=== PATIENT | female | born 1995 | race Hispanic/Latino ===

== ENCOUNTER 2019-06-05 04:15 | Inpatient (IN) | payer OTHER ==
[2019-06-05] MEDS ORDERED: Ringers Lactate 1,000 ML IV PRN (06:19)
[2019-06-05] MEDS ORDERED: PROMETHAZINE 25 MG/ML VIAL IV PRN (06:19)
[2019-06-05] MEDS ORDERED: BUTORPHANOL 1 MG/ML INJ IV PRN (06:19)
[2019-06-05] MEDS ORDERED: Ringers Lactate 1,000 ML IV SCH (07:00)
[2019-06-05 07:18] LABS: RPR Titer ND
[2019-06-05 07:25] LABS: Absolute Lymphocytes (CBC) 1.3 K/uL (0.7-4.9); Basophils % 0.4 % (0-1.3); Eosinophils % 0.3 % (0-4.4); Hematocrit 36.2 % (36.0-45.0); Lymphocytes % 9.4 % (15.3-44.8); MPV 9.3 fL (7.6-11.3); Monocytes % 3.8 % (3.3-12.3); RBC Red Blood Cell Count 4.36 M/uL (3.86-4.86)
[2019-06-05 07:36] LABS: Urine Appearance CLOUDY; Urine Bilirubin NEGATIVE (NEG); Urine Blood 3+ (NEG); Urine Color YELLOW; Urine Glucose NEGATIVE (NEG); Urine Protein NEGATIVE (NEG); Urine Specific Gravity 1.015 (1.005-1.030)
[2019-06-05 07:46] LABS: Urine Microscopic Reflex ORDER UMIC
[2019-06-05 07:50] VITALS: BMI 32.4
[2019-06-05 07:54] LABS: Urine Bacteria 20-50 /HPF (<20)
[2019-06-05 07:55] LABS: Urine Amorphous Sediment 2+ /HPF (NONE SEEN); Urine Culture Reflex Order REFLEXED
[2019-06-05 07:57] LABS: Blood Morphology Comment NOT SEEN (NOT SEEN); Platelet Estimate ADEQ; Urine White Blood Cell Casts OK
[2019-06-05] MEDS ORDERED: ROPIVACAINE HCL 100 ML IV PRN (09:31)
--- NOTE | 2019-06-05 09:33 | P.OBGYNHP ---
Certification for Inpatient Patient admitted to: Inpatient With expected LOS: >2 Midnights Patient will require the following post-hospital care: None Practitioner: I am a practitioner with admitting privileges, knowledge of patient current condition, hospital course, and medical plan of care. Services: Services provided to patient in accordance with Admission requirements found in Title 42 Section 412.3 of the Code of Federal Regulations Patient History Date of Service: 06/05/19 Reason for admission: LABOR History of Present Illness: 23-year-old 1 para 0 who presents at 39 weeks and log 5 days gestation in active labor. Patient 1st presented was found to be 1 cm dilated she is now 3-4 cm dilated and dave regularly. Patient has obtained complete care and has been compliant with all visits. care was uncomplicated. If last office visit was on May 31 at which time she was 1 cm dilated. Patient is GBS negative. She had noninvasive testing done which was low risk female fetus. Aneuploidy screening was negative. Last ultrasound was on April 30, 2019 at which time the growth was appropriate cephalic presentation, anterior placenta. See record for further details. Allergies No Known Allergies Allergy (Unverified 06/05/19 06:18) Home Medications: Cmb#95/Iron/FA/Dha [ + Dha Combo Pack] 1 each PO DAILY - Past Medical/Surgical History Has patient received pneumonia vaccine in the past: Yes Diabetic: No Past Medical History: Patient denies medical history Past Surgical History: Patient denies surgical history - Family History Family History: Reviewed- Non-Contributory (Diabetes, HTN, Gi Reflux disease, High Cholesterol, Arthritis) - Social History Smoking Status: Never smoker Alcohol use: No CD- Drugs: No Place of Residence: Home Review of Systems 10-point ROS is otherwise unremarkable Physical Examination - Vital Signs Temperature: 97.8 F Blood Pressure: 126/86 Pulse: 90 Respirations: 18 - General General: Alert, Oriented x3, Moderate distress HEENT: Atraumatic Neck: Supple Respiratory: Normal air movement Cardiovascular: No edema, Normal pulses Gastrointestinal: No rebound, No guarding, Other (Gravid) Musculoskeletal: No clubbing, No swelling Integumentary: No rashes, No breakdown Neurological: Normal gait, Normal speech - Female Pelvic External genitalia: Normal Vagina: Normal Cervix: Dilation (4-5 cm), Effacement (70%), station (-2 ) Uterus: Gravid Adnexa: Unable to evaluate - Obstetrics heart rate tracing: Category 2 Amniotic membrane: SROM (at 730am) Laboratory Data (last 24 hrs) 06/05/19 06:48: WBC 13.6 H, Hgb 12.0, Hct 36.2, Plt Count 306 Assessment and Plan - Plan Patient is a 23-year-old 1 para 0 at 39 weeks and 5 days gestation who presents in active labor. Spontaneous rupture of membranes has occurred. scalp electrode was placed. Continuous maternal monitoring will be performed. GBS is negative. Patient desires epidural placement anesthesia has been notified. Routine intrapartum care will be provided. Discharge Plan: Home Plan to discharge in: 48 Hours - Advance Directives Does patient have a Living Will: No Does patient have a Durable POA for Healthcare: No
[2019-06-05] MEDS ORDERED: FENTANYL CITR 100 MCG/2 ML IV ONE (09:36)
[2019-06-05] MEDS ORDERED: ROPIVACAINE HCL 0.2% 20ML AMP IV SCH (10:00)
[2019-06-05] MEDS ORDERED: EPHEDRINE SULF 50 MG/ML VIAL ONE (10:22)
[2019-06-05] MEDS ORDERED: METHYLERGONOVINE 0.2MG/ML AMP IM ONE (12:34)
[2019-06-05] MEDS ORDERED: LIDOCAINE 1% MPF 30 ML VIAL ONE (12:59)
[2019-06-05] MEDS ORDERED: ONDANSETRON 4 MG (ODT) TAB PO PRN (13:09)
[2019-06-05] MEDS ORDERED: ACETAMINOPHEN 500 MG TAB PO PRN (13:09)
[2019-06-05] MEDS ORDERED: Oxycodone HCl/Acetaminophen 1 TAB TAB PO PRN (13:09)
[2019-06-05] MEDS ORDERED: METHYLERGONOVINE 0.2 MG TAB PO PRN (13:09)
[2019-06-05] MEDS ORDERED: BISACODYL 10 MG RECTAL SUPP RECT PRN (13:09)
[2019-06-05] MEDS ORDERED: DOCUSATE NA/SENNA CONC 1 TAB PO PRN (13:09)
[2019-06-05] MEDS ORDERED: IBUPROFEN 200 MG TAB PO PRN (13:09)
[2019-06-05 13:45] LABS: Absolute Lymphocytes (CBC) 0.5 K/uL (0.7-4.9); Basophils % 0.1 % (0-1.3); Hematocrit 27.1 % (36.0-45.0); Lymphocytes % 3.9 % (15.3-44.8); MPV 9.1 fL (7.6-11.3); Monocytes % 4.8 % (3.3-12.3); RBC Red Blood Cell Count 3.18 M/uL (3.86-4.86)
[2019-06-05 14:17] LABS: Blood Morphology Comment NOT SEEN (NOT SEEN); Platelet Estimate ADEQ; Urine White Blood Cell Casts OK
[2019-06-05] MEDS ORDERED: Ringers Lactate 1,000 ML IV ONE ×2 (16:14→23:33)
[2019-06-05] MEDS ORDERED: NA CHLORIDE 0.9% 250 ML IV SCH (18:00)
[2019-06-05] MEDS ORDERED: NA CHLORIDE 0.9% 500 ML ONE (20:18)
[2019-06-05] MEDS ORDERED: CARBOPROST TROME 250 MCG/ML IM ONE (21:32)
[2019-06-06 04:03] LABS: RPR (Rapid Plasma Reagin) NON-REACT (NON-REACT)
[2019-06-06 04:11] LABS: Basophils % 0.1 % (0-1.3); Hematocrit 27.4 % (36.0-45.0); MPV 8.8 fL (7.6-11.3); Monocytes % 8.6 % (3.3-12.3); RBC Red Blood Cell Count 3.29 M/uL (3.86-4.86)
[2019-06-06 05:18] LABS: Blood Morphology Comment NOT SEEN (NOT SEEN); Platelet Estimate ADEQ
[2019-06-06 14:38] VITALS: BP 122/69; TEMP 96.9
--- NOTE | 2019-06-06 15:44 | P.OP ---
Date of Service: 06/05/19 Findings and Operative Technique Patient delivered a viable female in cephalic presentation on June 05, 2019 at 12:37 p.m.. was delivered over a midline episiotomy via vacuum assisted vaginal delivery. Once was delivered the nose and mouth were suctioned with a suction bulb and the cord was clamped and cut. was placed on mother's abdomen for skin to skin bonding. Attention was then turned to the placenta. Cord blood was obtained. The placenta was then delivered with gentle traction at 12:41. Attention was then turned to the episiotomy. Episiotomy was noted to be a second-degree laceration however there was also a vaginal sidewall laceration present as well as a periurethral laceration. Extensive amount of bleeding was noted at the periurethral laceration as well as the vaginal sidewall laceration on the right. These areas were rapidly repaired with a 2 0 and 3 O Vicryl. Once bleeding was controlled on these areas attention was then turned to the midline episiotomy which was repaired with a 2 0 Vicryl in usual fashion. Significant amount of bleeding was noted. Estimated blood loss was about 500 cc patient was noted to be tachycardic and appeared to be pale. Decision was made to monitor patient for an hr and a stat CBC was ordered. 1st stage of labor was 7 hr. 2nd stage was 1 hr. Apgars were 8 and 9. Weight was found to be 5 lb 15 oz. Patient is feeling well however she does feel tired. Once hematocrit results were received decision was then made to transfuse the patient with 2 units of packed RBCs. These were ordered from the labs will be given to the patient once they are received. Patient will be monitored for any reactions. Patient is bonding well with the baby.
--- NOTE | 2019-06-06 15:47 | P.DS ---
Admission Date: 06/05/19 Discharge Date: 06/06/19 Discharge Condition: GOOD Reason for Admission: LABOR Brief History of Present Illness: 23-year-old 1 para 0 who presents at 39 weeks and log 5 days gestation in active labor. Patient 1st presented was found to be 1 cm dilated she is now 3-4 cm dilated and dave regularly. Patient has obtained complete care and has been compliant with all visits. care was uncomplicated. If last office visit was on May 31 at which time she was 1 cm dilated. Patient is GBS negative. She had noninvasive testing done which was low risk female fetus. Aneuploidy screening was negative. Last ultrasound was on April 30, 2019 at which time the growth was appropriate cephalic presentation, anterior placenta. See record for further details. Hospital Course: Patient did well following delivery. She states in town of hemorrhage and was transfused 2 units of PRBCs. Following this patient has been feeling much better and has been ambulating without difficulty. She is tolerating a regular diet and voiding well. Patient is no longer bleeding. She is bonding well with the baby. Her mother does express that there are some social concerns due to some issues with the father of the baby and his relation with the mother of the baby. Discuss with patient mother to please contact social work to help resolve these issues. Vital Signs/Physical Exam: Temp Pulse Resp BP Pulse Ox 96.9 F 105 H 16 122/69 98 06/06/19 12:00 06/06/19 12:00 06/06/19 12:00 06/06/19 12:00 06/06/19 12:00 General: Alert, In no apparent distress HEENT: Atraumatic Neck: Supple Respiratory: Normal air movement Cardiovascular: No edema, Normal pulses Gastrointestinal: Soft and benign (Fundus firm palpable beneath umbilicus) Musculoskeletal: No clubbing, No swelling Integumentary: No rashes, No breakdown Neurological: Normal gait, Normal speech Laboratory Data at Discharge: WBC 17.5 K/uL (4.3-10.9) H D 06/06/19 03:45 Hgb 9.1 g/dL (12.0-15.0) L 06/06/19 03:45 Hct 27.4 % (36.0-45.0) L 06/06/19 03:45 Plt Count 231 K/uL (152-406) 06/06/19 03:45 Home Medications: Cmb#95/Iron/FA/Dha [ + Dha Combo Pack] 1 each PO DAILY Diet: Regular Activity: No lifting more than 10 lbs Followup: Dereje Solitario DO [ACTIVE - CAN ADMIT] - (Follow up care with Dr. Solitario in 6 weeks for post visit.)
[2019-06-07 13:54] LABS: HBsAG Nonreactive (Nonreactive)
== END 2019-06-06 15:25 | disposition home health service (06) | DRG 806 ==
LOC: L&D 04:15 → 2ND-WCNRSY 06:41 → 2ND-WC 06:59
PROVIDERS: ADMIT Student in an Organized Health Care Education/Training Program; ATTEND Student in an Organized Health Care Education/Training Program
PROC: 10D07Z6 Extraction of Products of Conception, Vacuum, Via Natural or Artificial Opening (ICD-10-PCS; principal; 2019-06-05)
PROC: 0KQM0ZZ Repair Perineum Muscle, Open Approach (ICD-10-PCS; 2019-06-05)
PROC: 0W8NXZZ Division of Female Perineum, External Approach (ICD-10-PCS; 2019-06-05)
PROC: 0UQMXZZ Repair Vulva, External Approach (ICD-10-PCS; 2019-06-05)
PROC: 30233N1 Transfusion of Nonautologous Red Blood Cells into Peripheral Vein, Percutaneous Approach (ICD-10-PCS; 2019-06-05)
DX: O71.82 Other specified trauma to perineum and vulva (principal); O72.1 Other immediate postpartum hemorrhage; Z37.0 Single live birth; O70.1 Second degree perineal laceration during delivery; Z3A.39 39 weeks gestation of pregnancy
CPT/HCPCS: 36415; 36430; 81003; 81015; 85025; 86592; 86850; 86900; 86901; 87086; 87088; 87340; J2210; J2795; J3010; P9016

== ENCOUNTER 2021-09-06 04:13 | Inpatient (IN) | payer OTHER ==
[2021-09-06] MEDS ORDERED: PROMETHAZINE INJ 25 MG/ML AMP IM PRN (04:14)
[2021-09-06] MEDS ORDERED: Ringers Lactate 1,000 ML IV PRN (04:14)
[2021-09-06] MEDS ORDERED: METHYLERGONOVINE 0.2MG/ML AMP IM PRN (04:14)
[2021-09-06] MEDS ORDERED: CARBOPROST TROME 250 MCG/ML IM PRN (04:14)
[2021-09-06] MEDS ORDERED: BUTORPHANOL 1 MG/ML INJ IV PRN (04:14)
[2021-09-06] MEDS ORDERED: Ringers Lactate 1,000 ML IV SCH (05:00)
[2021-09-06] MEDS ORDERED: OXYTOCIN/LR 20 UNIT/1,000 ML BAG IV SCH ×2 (05:00→12:00)
[2021-09-06 05:17] LABS: Absolute Lymphocytes (CBC) 1.6 K/uL (0.7-4.9); Basophils % 0.7 % (0-1.3); Hematocrit 32.2 % (36.0-45.0); Lymphocytes % 20.6 % (15.3-44.8); RBC Red Blood Cell Count 4.09 M/uL (3.86-4.86)
[2021-09-06 05:24] VITALS: BMI 34.0
--- NOTE | 2021-09-06 08:00 | PREOPHP ---
Date of Admission: 09/06/2021 History Of Present Illness: This is a 25-year-old, 2, para 1, at 39 weeks 1 day for inductio n. The patient is dave regularly at this point. She is now 2.5 cm. She experienced partial rupture of membranes. Complete rupture membranes performed. Clear fluid. Full labor talk given. S he tried to go natural with the first delivery and had epidural at 7 cm. She said this time she will also again try to go natural if possible. Full labor talk given. Family History: Mother and father with hypertension. Mother with heart attack. Mother and father w ith stroke. Mother with stomach ulcers. Mother and father with diabetes. Mother with cancer site u nsure. Past Surgical History: The patient has had previous gallbladder surgery. Allergies: SHE HAS NO ALLERGIES. Social History: She does not smoke. Physical Examination: HEENT: Clear. Pupils equal, round, reactive to light and accommodation. Conjunctivae well perfused. No oral, lingual, or buccal lesions. Chest: Lungs clear. Heart: Without murmurs, thrills, heave s, or rubs. Breasts: Without masses on previous visits. Abdomen: Term size. Baby is vertex. Ext remities: Clear without edema, cyanosis, or clubbing. Anticipate delivery sometime later today. MARTHA/ELMO Voice ID: [id number]
[2021-09-06] MEDS ORDERED: HYDRALAZINE HCL 20 MG/ML VIAL IV ONE (08:22)
[2021-09-06] MEDS ORDERED: HYDRALAZINE HCL 20 MG/ML VIAL ONE (08:51)
[2021-09-06 09:13] LABS: Urine Appearance CLEAR (Clear); Urine Bilirubin NEGATIVE (Negative); Urine Blood NEGATIVE (Negative); Urine Color YELLOW (Yellow); Urine Glucose NEGATIVE (Negative); Urine Protein NEGATIVE (Negative); Urine Specific Gravity 1.015 (1.005-1.030); Urine pH 7.5 (5.0-7.0)
[2021-09-06 09:40] LABS: Urine Bacteria <20 /HPF (<20); Urine Mucus 1+ /HPF (NONE SEEN); Urine RBC <5 /HPF (NONE SEEN)
[2021-09-06] MEDS ORDERED: BISACODYL 10 MG RECTAL SUPP RC PRN (11:16)
[2021-09-06] MEDS ORDERED: DOCUSATE NA/SENNA CONC 1 TAB PO PRN (11:16)
[2021-09-06] MEDS ORDERED: Oxycodone HCl/Acetaminophen 1 TAB TAB PO PRN ×2 (11:16)
[2021-09-06] MEDS ORDERED: ACETAMINOPHEN 500 MG TAB PO PRN (11:16)
[2021-09-06] MEDS ORDERED: IBUPROFEN 600 MG TAB PO PRN (11:16)
[2021-09-06] MEDS ORDERED: DIPHENHYDRAMINE 25 MG TAB/CAP PO PRN (11:16)
--- NOTE | 2021-09-06 11:30 | PN ---
The patient started having deep variable decelerations. Was placed in different positions. The posi tion works best and is actually sitting up. Then, the decelerations only go into the 90 beats per mi nute and she has good variability in between. Pitocin has been discontinued. She was only on 8 mill iunits. The patient is now 8 cm, 100% effaced, 0 station. Anticipate that she will deliver relative ly soon. Full discussion with the patient. MARTHA/ELMO Voice ID: [id number] Report ID: [id number]
--- NOTE | 2021-09-06 12:15 | OP ---
Surgeon: Jorge Pinzon MD Procedure In Detail: A 25-year-old, 2, para 1, 39 weeks 1 day, delivered of a 7-pound 2-ounc e male infant after a very short second stage, 15 minutes or less. Apgars 8 and 9. Nuchal cord x1. Three first-degree small lacerations, 1 on either side of the introitus and 1 at the posterior fourc hette, all sutured with 2-0 chromic. One on the left, 1 [id number] stitch, 1 on the right, 3 ru nning locked stitches, midline fourchette 4 routine stitches. Schultze delivery of the placenta. Le ss than 200 mL blood loss. Placenta inspected and noted to be intact and normal. The patient is Rh positive, immune to rubella, negative strep, negative COVID. Tolerated all procedures well. Had Sta dol 1 mg IV, Phenergan 25 mg IM during the labor. Otherwise used Lamaze breathing techniques to best advantage. Final Diagnoses: Term intrauterine at 39 weeks 1 day, vaginal delivery, nuchal cord x1. NBC/MODL Voice ID: [id number] Report ID: [id number]
[2021-09-06] MEDS ORDERED: Ringers Lactate 1,000 ML IV ONE ×2 (18:22→18:24)
[2021-09-07 00:35] LABS: RPR (Rapid Plasma Reagin) NON-REACT (NON-REACT)
[2021-09-07 12:28] VITALS: BP 128/76; TEMP 97.5
--- NOTE | 2021-09-07 12:53 | DS ---
Hospital Course: Judy Chavez is a 25-year-old, 2, para 1, 39 weeks 1 day, delivered of a 7-pound 2-ounce male infant, Apgars 8 and 9. Local infiltration for repair of 3 small first-degree lacerations, 1 on either side of the introitus and labia minora and 1 at the posterior fourchette. S chultze delivery of the placenta, which inspected and noted to be intact and normal. Less than 200 m L blood loss. Rh positive, immune to rubella, negative strep, negative COVID. The patient had a cou ple of blood pressures were elevated during the labor during contractions, but protein was negative. No edema and no reflex problems. I do not think she has preeclampsia. Subsequently, the last sever al blood pressures have been normal. She is afebrile, ambulating, and voiding. She will be dismisse d later today to report back to my office in 6 weeks for followup to report any temperature elevation of 100 degrees or greater, severe pain, heavy bleeding, or any other type of abnormality. Offered T dap, flu shots and she knows she can get COVID shots if she chooses. No complaints or problems this morning. The patient requests no analgesics. Full dismissal. Final Diagnoses: Term intrauterine at 39 weeks 1 day, vaginal delivery. MARTHA/ELMO Voice ID: [id number] Report ID: [id number]
[2021-09-10 15:48] LABS: HBsAG Nonreactive (Nonreactive)
== END 2021-09-07 13:30 | disposition home or self-care (01) | DRG 807 ==
LOC: 2ND-WC 04:13
PROVIDERS: ADMIT Specialist; ATTEND Specialist
PROC: 10E0XZZ Delivery of Products of Conception, External Approach (ICD-10-PCS; principal; 2021-09-06)
PROC: 0HQ9XZZ Repair Perineum Skin, External Approach (ICD-10-PCS; 2021-09-06)
DX: O70.0 First degree perineal laceration during delivery (principal); Z37.0 Single live birth; Z3A.39 39 weeks gestation of pregnancy; Z20.822 Contact with and (suspected) exposure to COVID-19
CPT/HCPCS: 36415; 81001; 85025; 86592; 86850; 86900; 86901; 87340; J0360; J0595; J2210; J2550; J2590; J7120; U0003